=== PATIENT | female | born 1975 | race Caucasian/White ===

== ENCOUNTER 2020-12-11 14:22 | Outpatient (CLI) | payer BC, SELFPAY ==
--- NOTE | 2020-12-11 14:26 | MM_ITS ---
WS: [id number] BILATERAL SCREENING DIGITAL MAMMOGRAM WITH CAD HISTORY: SCREENING COMPARISON: None available. Bilateral CC and MLO views submitted. Computer aided detection analyzed. Breast composition: The breasts are heterogeneously dense, which may obscure small masses. No suspici ous masses, microcalcifications or architectural distortion. MM/[place] [id number] IMPRESSION: BI-RADS: 1-Negative FOLLOW UP: 1 Year Follow-up
== END 2020-12-11 14:23 | disposition home or self-care (01) ==
LOC: RADSHAW 14:25
PROVIDERS: PCP Family Medicine; Visit Provider Family Medicine
DX: Z12.31 Encounter for screening mammogram for malignant neoplasm of breast (principal)
CPT/HCPCS: 77067

== ENCOUNTER → 2021-12-03 17:58 | Outpatient (BNVA) | payer BC, SELFPAY | PROVIDERS: PCP Family Medicine; Visit Provider Registered Nurse Neonatal Intensive Care | DX: J02.9 Acute pharyngitis, unspecified (principal) | CPT/HCPCS: 87880 ==

== ENCOUNTER 2021-12-23 08:10 | Outpatient (CLI) | payer BC, SELFPAY ==
--- NOTE | 2021-12-23 | US_ITS ---
WS: [id number] Exam: US pelvic with transvaginal Date/Time of Exam: 12/23/2021 12:00 AM Reason For Exam: PELVIS MASS There is a complex left adnexal mass noted being partially solid and partially cystic. The mass measu res 10 x 7.3 x 9.8 cm. There is some increased vascularity in the peripheral aspect of the mass. The uterus is bicornuate and contains a small fibroid measuring 2.4 x 2 x 2.2 cm. The cervix is unremarka ble. The right adnexa is clear. The right ovary is identified and is unremarkable. The right ovary me asures 3 x 2.6 x 2 cm. The left ovary can be identified and measures 3.95 x 3.6 x 2.64 cm. The above- described left adnexal mass may abut the left ovary. No free pelvic fluid identified. Recommendations: CT scan of the abdomen and pelvis with the GI and IV contrast might be considered fo r more detailed evaluation. US/US pelvic with transvaginal IMPRESSION: 1. Complex partially solid and partially cystic left adnexal mass with vascular ity measuring 10 x 7.3 x 9.8 cm. The mass may abut or involve the left ovary. 2. Bicornuate uterus. Small uterine fibroid noted in the left fundus. Unremarka ble right ovary. No abnormal free fluid collection in the pelvis.
== END 2021-12-23 08:11 | disposition home or self-care (01) ==
LOC: RADOUTREAD 12-24 08:12
PROVIDERS: PCP Family Medicine; Visit Provider Family Medicine
DX: R19.00 Intra-abdominal and pelvic swelling, mass and lump, unspecified site (principal)
CPT/HCPCS: 76830; 76856

== ENCOUNTER → 2022-10-21 15:04 | Outpatient (BNVA) | payer BC, SELFPAY | PROVIDERS: PCP Family Medicine; Visit Provider Obstetrics & Gynecology | DX: D26.9 Other benign neoplasm of uterus, unspecified (principal) | CPT/HCPCS: 76830 ==

== ENCOUNTER 2024-06-19 14:08 | Outpatient (CLI) | payer BC, SELFPAY ==
--- NOTE | 2024-06-19 14:10 | MM_ITS ---
WS: [id number] BILATERAL 3D TOMOSYNTHESIS DIGITAL DIAGNOSTIC MAMMOGRAPHY WITH CAD CLINICAL INFORMATION: NIPPLE DISCHARGE HISTORY: RIGHT nipple discharge COMPARISON: 2020 TECHNIQUE: Bilateral CC, MLO, and ML views. FINDINGS: The breasts are composed of heterogeneous fibroglandular density, which can limit the detection of sm all underlying mass lesions. Ovoid nodularity deep to the RIGHT areola. Ultrasound is pending. LEFT breast is unremarkable. ULTRASOUND BREAST RIGHT TECHNIQUE: Ultrasound right breast focused area of concern. CLINICAL INFORMATION: NIPPLE DISCHARGE FINDINGS: Numerous dilated ducts with intraductal debris. Lobulated cystic areas of intraductal dilatation. Fin dings are probably benign and recommend 6-month follow-up diagnostic mammography and ultrasound to co nfirm stability. MM/MM diag BI tomosynthesis [id number] IMPRESSION: DENSITY: The breasts are heterogeneously dense, which may obscure small masses. BI-RADS: 3 - Probably Benign FOLLOW UP: 6 Month Follow-up Recommend 6-month follow-up RIGHT breast diagnostic mammography and ultrasound.
== END 2024-06-19 14:09 | disposition home or self-care (01) ==
LOC: RAD 14:09
PROVIDERS: PCP Family Medicine; Visit Provider Family Medicine
DX: N64.52 Nipple discharge (principal); R92.333 Mammographic heterogeneous density, bilateral breasts; N60.49 Mammary duct ectasia of unspecified breast
CPT/HCPCS: 76642; 77062; G0279